=== PATIENT | female | born 2000 | race Caucasian/White ===

== ENCOUNTER 2019-02-04 10:47 | Emergency (ER) | payer BC ==
[~2019-02-04] VITALS: Ht 182.9 cm; Wt 65.8 kg
[2019-02-04 11:13] LABS: ABSOLUTE NEUTROPHILS 2.3 thou/uL (1.4-8.2); BASOPHILS 1.1 % (0.0-2.0); EOSINOPHILS 2.5 % (0.0-3.0); HEMATOCRIT 37.9 % (37.0-47.0); HEMOGLOBIN 13.1 gm/dL (12.0-15.0); LYMPHOCYTES 33.3 % (24.0-44.0); MCH 31.7 pg (26.0-34.0); MCHC 34.5 g/dL (28.0-37.0); MCV 91.9 fL (80.0-100.0); MONOCYTES 11.1 % (1.0-8.0); PLATELET COUNT 283 thou/uL (150-400); RBC 4.13 mil/uL (4.20-5.00); WBC 4.5 thou/uL (4.0-11.0)
[2019-02-04 11:21] LABS: CALCIUM 8.4 mg/dL (8.5-10.1); CREATININE 0.9 mg/dL (0.6-1.0); POTASSIUM 3.4 mmol/L (3.5-5.1)
[2019-02-04 11:26] LABS: ALBUMIN 3.4 g/dL (3.4-5.0); TOTAL BILIRUBIN 0.3 mg/dL (<0.1-1.0); TOTAL PROTEIN 7.3 g/dL (6.4-8.2)
--- NOTE | 2019-02-04 12:24 | EKG ---
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 : 2000 Requested By: Jhon Esquivel Order Number: [id number] MD: Michelet Kapoor Measurements Intervals [place] Rate: 72 P: 65 TN: 143 QRS: 63 QRSD: 87 T: 10 QT: 385 QTc: 422 Interpretive Statements Sinus rhythm Left atrial enlargement Nonspecific ST-T wave changes No previous ECG available for comparison Electronically Signed On 02-04-2019 12:24:35 [employer] by Michelet Kapoor [email or web address] ��������������������������������������������� <ELECTRONICALLY SIGNED> ���������������������������������������� By: Michelet Kapoor MD ��������������������������������������������� 02/04/19 1224 1110 1110 Michelet Kapoor MD /EPI
[2019-02-04 13:06] VITALS: BP 138/76
== END 2019-02-04 13:07 | disposition home or self-care (01) ==
LOC: ER 10:47
PROVIDERS: Physician Assistant
DX: R42 Dizziness and giddiness (principal); R00.2 Palpitations